=== PATIENT | female | born 1995 | race Caucasian/White ===

== ENCOUNTER 2019-12-12 13:58 | Emergency (ER) | payer OTHER ==
--- NOTE | 2019-12-12 15:24 | ED ---
Back Pain - HPI Summary HPI Summary: This patient is a 24 year old F presenting to ED with a chief complaint of upper back pain since yesterday afternoon, worsening today. Patient describes the pain as stabbing and shooting under shoulders. Patient reports she was unable to sleep last night due to the pain. She states she has never had pain like this before. She has developed dizziness this morning and reports that she also vomited with nausea all morning today. Patient describes the dizziness as feeling like Im falling and room-spinning. In the ED room, she says she does not have the dizziness while sitting. Patient denies congestion. The patient rates the pain 8/10 in severity. Dizziness is aggravated by walking around. Back pain is aggravated by touching the back and deep breaths. Symptoms alleviated by nothing. Patient has ADHD but she did not take her medications today. Patients last menstrual cycle was three days ago. Patient reports she had her flu shot this season. - History of Current Complaint Chief Complaint: EDBackInjuryPain Stated Complaint: BACK PAIN,DIZZY,VOMITING PER PT Time Seen by Provider: 12/12/19 15:10 Hx Obtained From: Patient Hx Last Menstrual Period: 12/09/2019 Onset/Duration: Gradual Onset, Lasting Hours - Since 1600 yesterday, Still Present, Worse Since Onset/Duration: Started Hours Ago - Since 1600 yesterday, Still Present, Worse Since Timing: Constant, Lasting Hours - Since 1600 yesterday Back Pain Location: Is Diffuse - Upper back Severity Initially: Severe Severity Currently: Severe Pain Intensity: 8 Pain Scale Used: 0-10 Numeric Character: Sharp Aggravating Symptom(s): Movement, Other - Touching it, deep breaths Alleviating Symptom(s): Nothing Associated Signs And Symptoms: Positive: Negative - Congestion, Other - Dizziness, nausea, vomiting - Allergies/Home Medications Allergies/Adverse Reactions: Allergies Allergy/AdvReac Type Severity Reaction Status Date / Time No Known Allergies Allergy Verified 12/12/19 14:04 PMH/Surg Hx/FS Hx/Imm Hx Sensory History: Denies: Hx Legally Blind, Hx Deafness Opthamlomology History: Denies: Hx Legally Blind EENT History: Denies: Hx Deafness Psychiatric History: Reports: Hx Attention Deficit Hyperactivity Disorder - Surgical History Surgery Procedure, Year, and Place: Denies Infectious Disease History: No Infectious Disease History: Denies: Traveled Outside the [place] in Last 30 Days - Family History Known Family History: Positive: Other - Gallbladder removal - Social History Alcohol Use: Occasionally Hx Substance Use: No Substance Use Type: Reports: None Hx Tobacco Use: No Smoking Status (MU): Never Smoked Tobacco Review of Systems ENT: Negative - Congestion Positive: Vomiting, Nausea Musculoskeletal: Other - Back pain Neurological: Other - Dizziness All Other Systems Reviewed And Are Negative: Yes Physical Exam - Summary Physical Exam Summary: Appearance: The patient is well-nourished in no acute distress and in no acute pain. Skin: The skin is warm and dry, and skin color reflects adequate perfusion. HEENT: The head is normocephalic and atraumatic. The pupils are equal and reactive. No nystagmus. The conjunctivae are clear and without drainage. Nares are patent and without drainage. Mouth reveals moist mucous membranes, and the throat is without erythema and exudate. The external ears are intact. The ear canals are patent and without drainage. The tympanic membranes are intact. Neck: The neck is supple with full range of motion and non-tender. There are no carotid bruits. There is no neck vein distension. Respiratory: Chest is non-tender. Lungs are clear to auscultation and breath sounds are symmetrical and equal. Cardiovascular: Heart is regular rate and rhythm. There is no murmur or rub auscultated. There is no peripheral edema and pulses are symmetrical and equal. Abdomen: The abdomen is soft and non-tender. There are normal bowel sounds heard in all four quadrants and there is no organomegaly palpated. Musculoskeletal: Tenderness to the proximal dorsal spine. Neurological: Patient is alert and oriented to person, place and time. The patient has symmetrical motor strength in all four extremities. Cranial nerves are grossly intact. Deep tendon reflexes are symmetrical and equal in all four extremities. Psychiatric: The patient has an appropriate affect and does not exhibit any anxiety or depression. Triage Information Reviewed: Yes Vital Signs On Initial Exam: Initial Vitals Temp Pulse Resp BP Pulse Ox 97.4 F 78 19 146/88 97 12/12/19 13:59 12/12/19 13:59 12/12/19 13:59 12/12/19 13:59 12/12/19 13:59 Vital Signs Reviewed: Yes Procedures - Sedation Patient Received Moderate/Deep Sedation with Procedure: No Diagnostics - Vital Signs Vital Signs Temp Pulse Resp BP Pulse Ox 12/12/19 13:59 97.4 F 78 19 146/88 97 - Laboratory Lab Statement: Any lab studies that have been ordered have been reviewed, and results considered in the medical decision making process. Re-Evaluation - Re-Evaluation First Eval Re-Evaluation Time: 16:52 Comment: With treatment, patient reports feeling better. Discussed results with patient. Patient will be discharged home with dx of labyrinthitis. Patient understands and agrees with this plan. Back Pain Course/Dx - Course Course Of Treatment: Ms. Martin presented with a positional vertigo. It improved with meclizine. She also had upper back lower neck pain and tenderness. She's had pain in that area before but never this bad. I think this is likely a labyrinthitis as part of a viral illness causing her to have increased pain in her upper back. I recommended symptomatic treatment and close follow-up. - Diagnoses Provider Diagnoses: Labyrinthitis Discharge ED - Sign-Out/Discharge Documenting (check all that apply): Patient Departure - Discharge - Discharge Plan Condition: Stable Disposition: HOME Prescriptions: Meclizine TAB* [Antivert 12.5 TAB*] 25 mg PO TID PRN #20 tab PRN Reason: Dizziness Patient Education Materials: Labyrinthitis (ED) Referrals: [facility] - Teto PANDYA [Primary Care Provider] - 3 Days Additional Instructions: Please follow-up with your primary care physician in 2-3 days. PLEASE RETURN TO THE ER FOR WORSENING OR CHANGING SYMPTOMS. It was a pleasure taking care of you today. - Billing Disposition and Condition Condition: STABLE Disposition: Home - Attestation Statements Document Initiated by Katy: Yes Documenting Scribe: Kevin Vick Provider For Whom Katy is Documenting (Include Credential): Jann Byrne MD Scribe Attestation: I, Kevin Vick, scribed for Jann Byrne MD on 12/12/19 at 1824. Scribe Documentation Reviewed: Yes Provider Attestation: The documentation as recorded by the Kevin srivastava accurately reflects the service I personally performed and the decisions made by me, Jann Byrne MD Status of Scribe Document: Viewed
[2019-12-12] MEDS ORDERED: Meclizine TAB* 12.5 MG PO ONE (15:26)
[2019-12-12 16:07] LABS: Influenza A Molecular NEGATIVE (Negative); Influenza B Molecular NEGATIVE (Negative)
[2019-12-12 17:16] VITALS: BP 124/72
== END 2019-12-12 17:05 | disposition home or self-care (01) ==
LOC: ED 13:58
DX: H83.09 Labyrinthitis, unspecified ear (principal); F90.9 Attention-deficit hyperactivity disorder, unspecified type
CPT/HCPCS: 99282; A9270-GY

== ENCOUNTER 2020-02-17 01:13 | Emergency (ER) | payer OTHER ==
--- NOTE | 2020-02-17 01:42 | ED ---
Lower Extremity - HPI Summary HPI Summary: 24 year old F presenting to [facility] with a chief complaint of bilateral leg cramping since 19:00 today. Patient reports numbness in her foot. The patient rates the pain 6/10 in severity. Symptoms aggravated by nothing. Symptoms alleviated by nothing. Patient reports that she started using the NuvaRing today. Patient denies any fever, chest pain, or shortness of breath. Her last menstrual period was 2 weeks ago. Medication list reviewed. Allergy list reviewed. - History of Current Complaint Chief Complaint: EDExtremityLower Stated Complaint: LEG PAIN PER PT Time Seen by Provider: 02/17/20 01:29 Hx Obtained From: Patient Hx Last Menstrual Period: 12/09/2019 Onset of Pain: Hours Onset/Duration: Still Present Severity Currently: Moderate Pain Intensity: 6 Pain Scale Used: 0-10 Numeric Timing: Constant Associated Signs And Symptoms: Positive: Other - Foot numbness Aggravating Factor(s): Nothing Alleviating Factor(s): Nothing Able to Bear Weight: Yes - Allergies/Home Medications Allergies/Adverse Reactions: Allergies Allergy/AdvReac Type Severity Reaction Status Date / Time No Known Allergies Allergy Verified 02/17/20 01:15 Home Medications: Home Medications Meclizine TAB* [Antivert 12.5 TAB*] 25 mg PO TID PRN #20 tab 12/12/19 [Rx] PMH/Surg Hx/FS Hx/Imm Hx Sensory History: Denies: Hx Legally Blind, Hx Deafness Opthamlomology History: Denies: Hx Legally Blind Psychiatric History: Reports: Hx Attention Deficit Hyperactivity Disorder - Surgical History Surgery Procedure, Year, and Place: Rhinoplasty - Immunization History Date of Tetanus Vaccine: 11/2019 Date of Influenza Vaccine: 11/2019 Infectious Disease History: No Infectious Disease History: Denies: Traveled Outside the [place] in Last 30 Days - Family History Known Family History: Positive: Other - Gallbladder removal - Social History Alcohol Use: Occasionally Hx Substance Use: No Substance Use Type: Reports: None Hx Tobacco Use: No Smoking Status (MU): Never Smoked Tobacco Review of Systems Negative: Fever Negative: Chest Pain Negative: Shortness Of Breath Positive: Other - Bilateral leg cramping Positive: Numbness All Other Systems Reviewed And Are Negative: Yes Physical Exam - Summary Physical Exam Summary: Constitutional: Well-developed, Well-nourished, Alert. (-) Distressed Skin: Warm, Dry HENT: Normocephalic; Atraumatic Eyes: Conjunctiva normal Neck: Musculoskeletal ROM normal neck. (-) JVD, (-) Stridor, (-) Tracheal deviation Cardio: Rhythm regular, rate normal, Heart sounds normal; Intact distal pulses; Radial pulses are 2+ and symmetric. (-) Murmur Pulmonary/Chest wall: Effort normal. (-) Respiratory distress, (-) Wheezes, (-) Rales Abd: Soft, (-) tenderness, (-) Distension, (-) Guarding, (-) Rebound Musculoskeletal: (-) Edema, no leg swelling, no venous cords, no worsening pain with dorsiflexion of foot. Lymph: (-) Cervical adenopathy Neuro: Alert, Oriented x3 Psych: Mood and affect Normal Triage Information Reviewed: Yes Vital Signs On Initial Exam: Initial Vitals Temp Pulse Resp BP Pulse Ox 98.7 F 92 15 140/94 100 02/17/20 01:14 02/17/20 01:14 02/17/20 01:14 02/17/20 01:14 02/17/20 01:14 Vital Signs Reviewed: Yes Procedures - Sedation Patient Received Moderate/Deep Sedation with Procedure: No Diagnostics - Vital Signs Vital Signs Temp Pulse Resp BP Pulse Ox 02/17/20 01:14 98.7 F 92 15 140/94 100 - Laboratory Lab Statement: Any lab studies that have been ordered have been reviewed, and results considered in the medical decision making process. Lower Extremity Course/Dx - Course Course Of Treatment: Patient is here of bilateral leg cramping. Patient started the new ring yesterday and was concerned about blood clot. Patient's exam is completely normal. Patient has bilateral leg symptoms making DVT highly unlikely, especially as she was only on her new ring for a couple of hours prior to symptoms starting. However, patient was offered blood test to check her electrolytes and to do a d-dimer but declined after being reassured by my exam. - Diagnoses Provider Diagnoses: Muscle cramps Discharge ED - Sign-Out/Discharge Documenting (check all that apply): Patient Departure - Discharge Plan Condition: Stable Disposition: HOME Patient Education Materials: Muscle Cramp (ED) Referrals: [facility] [Outside] - 3 Days Additional Instructions: Follow-up with your PCP in 1-3 days. Return to the emergency department for any severe pain, chest pain, or trouble breathing. - Billing Disposition and Condition Condition: STABLE Disposition: Home - Attestation Statements Document Initiated by Katy: Yes Documenting Scribe: Taisha Steward Provider For Whom Katy is Documenting (Include Credential): Jose Max MD Scribe Attestation: Taisha Delgado, scribed for Jose Max MD on 02/17/20 at 0344. Scribe Documentation Reviewed: Yes Provider Attestation: The documentation as recorded by the Taisha srivastava accurately reflects the service I personally performed and the decisions made by , Jose Max MD Status of Scribe Document: Viewed
[2020-02-17 03:10] VITALS: BP 121/68
== END 2020-02-17 02:00 | disposition home or self-care (01) ==
LOC: ED 01:13
DX: R25.2 Cramp and spasm (principal); F90.9 Attention-deficit hyperactivity disorder, unspecified type; R20.0 Anesthesia of skin
CPT/HCPCS: 99282